=== PATIENT | female | born 1950 | race Caucasian/White ===

== ENCOUNTER → 2018-09-03 15:26 | Outpatient (CLI) | payer OTHER, SELFPAY ==
--- NOTE | 2018-09-03 | DI.MG.S_ITS ---
BILATERAL DIGITAL SCREENING MAMMOGRAM 3D/2D WITH CAD: 09/03/2018 CLINICAL: Routine screening. Family history of breast cancer. Comparison is made to exams dated: 05/20/2017 mammogram - [facility], 05/07/2016 mammogram, and 08/27/2014 mammogram - [facility]. The tissue of both breasts is heterogeneously dense. This may lower the sensitivity of mammography. Current study was also evaluated with a Computer Aided Detection (CAD) system. There are benign vascular calcifications in the right breast. No significant masses, calcifications, or other findings are seen in either breast. There has been no significant interval change. IMPRESSION: There is no mammographic evidence of malignancy. A 1 year screening mammogram is recommended. This exam was interpreted at Station ID: [id number]. NOTE: For mammograms, a report in lay terms will be sent to the patient. Approximately 15% of breast malignancies will not be visualized mammographically. In the management of a palpable breast mass, a negative mammogram must not discourage biopsy of a clinically suspicious lesion. Electronically Signed By: Luke waldrop/renetta:09/03/2018 18:47:25 letter sent: Normal Exam ACR BI-RADS Category 2: Benign Finding(s) 3342F
== END ==
PROVIDERS: Visit Provider Family Medicine
DX: Z12.31 Encounter for screening mammogram for malignant neoplasm of breast (principal); Z80.3 Family history of malignant neoplasm of breast
CPT/HCPCS: 77063; 77067

== ENCOUNTER → 2020-08-23 13:39 | Outpatient (CLI) | payer MEDICARE, SELFPAY | PROVIDERS: PCP Nurse Practitioner Family; Referring Provider Nurse Practitioner Family; Visit Provider Nurse Practitioner Family | DX: M81.0 Age-related osteoporosis without current pathological fracture (principal); E55.9 Vitamin D deficiency, unspecified; R29.890 Loss of height | CPT/HCPCS: 77080 ==

== ENCOUNTER → 2022-03-02 13:30 | Outpatient (CLI) | payer MEDICARE, SELFPAY ==
--- NOTE | 2022-03-02 | DI.MG.S_ITS ---
UNILATERAL RIGHT DIGITAL DIAGNOSTIC MAMMOGRAM 3D/2D WITH ADDITIONAL VIEWS: 03/02/2022 CLINICAL: Additional evaluation requested from prior study. Comparison is made to exams dated: 01/18/2022 mammogram - outside facility, 01/13/2020 mammogram - [facility], and 09/03/2018 mammogram - [facility]. The right breast is heterogeneously dense, which may obscure small masses (category c / 51-75% glandular tissue). There are new linear fine heterogeneous calcifications in the right breast at 1 o'clock middle depth. These are seen in additional views. No other significant masses or calcifications are seen in the breast. IMPRESSION: SUSPICIOUS OF MALIGNANCY The new linear fine heterogeneous calcifications in the right breast are at a high suspicion for malignancy. A stereotactic biopsy is recommended. Findings and recommendations were discussed with the patient by the onsite radiologist, Dr. Muir, at the time of the exam. Based on the Tyrer Cuzick model (a risk assessment model) the patient's lifetime risk is 12.9% and her 10 year risk is 7.7%. According to the ACR, ACS, and NCCN guidelines, an annual breast MRI exam along with mammogram is recommended if the patient's lifetime risk is 20% or greater. This exam was interpreted at Station ID: [id number]. NOTE: For mammograms, a report in lay terms will be sent to the patient. Approximately 15% of breast malignancies will not be visualized mammographically. In the management of a palpable breast mass, a negative mammogram must not discourage biopsy of a clinically suspicious lesion. Electronically Signed By: Henri olmos/renetta:03/02/2022 15:34:47 letter sent: Biopsy Required ACR BI-RADS Category 4c: Suspicious abnormality - moderate concern but not classic for malignancy 3344F
== END ==
PROVIDERS: PCP Family Medicine; Referring Provider Nurse Practitioner Family; Visit Provider Nurse Practitioner Family
DX: R92.8 Other abnormal and inconclusive findings on diagnostic imaging of breast (principal); R92.1 Mammographic calcification found on diagnostic imaging of breast
CPT/HCPCS: 77065; G0279

== ENCOUNTER → 2022-04-02 12:16 | Outpatient (CLI) | payer MEDICARE, SELFPAY ==
--- NOTE | 2022-04-02 12:18 | DI.MRI.S_ITS ---
BREAST MRI OF BOTH BREASTS: 04/02/2022 CLINICAL: Intraductal carcinoma of the Right breast. PROCEDURE: MR BREAST BI WO/W CON INDICATIONS: Intraductal carcinoma in situ of right breast. TECHNIQUE: The patient was placed prone in a dedicated breast imaging coil. Precontrast axial STIR and 3D FLASH without fat saturation sequences were obtained. Both before and after bolus injection of contrast, sequential 1-minute axial 3D FLASH with fat saturation sequences for 3 time points, with subtraction images and maximum intensity projections (MIP's) generated. Delayed sagittal FLASH images with fat saturation were also obtained. CONTRAST: 20 cc ProHance IV contrast. Computer-aided detection, including computer algorithm analysis of MRI image data for lesion detection and characterization, pharmacokinetic analysis, with further physician review for interpretation, was performed. COMPARISON: [facility], MG, MG BREAST SPECIMEN RIGHT, 03/09/2022, 9:35. [facility], MG, MG DIGITAL BREAST TOMOSYNTHESIS BREAST BIOPSY RIGHT, 03/09/2022, 9:27. [facility], MG, MM SPECIAL VIEW RT, 03/02/2022, 13:43. Outside Facility, MG, MM SCREENING MAMMO BI, 01/18/2022, 15:22. [facility], MG, MG SCREENING BILATERAL DIGITAL BREAST TOMOSYNTHESIS, 01/13/2020, 13:15. FINDINGS: Image quality: Excellent. There is mild background parenchymal enhancement. Right breast: 12-1 o'clock anterior depth clumped non mass enhancement spanning 4 cm, (7/66, 76). Biopsy clip at the posterior aspect. This corresponds to the biopsy-proven DCIS. On the mammogram there is subtle fine calcifications in this region best seen on the ML view. The mammogram calcifications slightly underestimate the extent of non mass enhancement and likely extent of disease. Kinetic analysis demonstrates slow initial phase and persistent delayed phase. No mass is identified. Left breast: No mass or suspicious enhancement. Miscellaneous: No enlarged lymph nodes. IMPRESSION: KNOWN BIOPSY PROVEN MALIGNANCY 1. Right breast: 12-1 o'clock anterior depth clumped non mass enhancement spanning 4 cm corresponding to the biopsy-proven DCIS. The disease extends anterior from the biopsy clip. Disease on MRI is slightly larger than the fine calcifications seen on mammogram. Bracketed localization would be helpful for surgical planning. 2. Left breast: No mass or suspicious enhancement. 3. Axilla: No enlarged lymph nodes. BIRADS 6 COMMENT: The imaging literature indicates that a negative contrast breast MRI examination has a high sensitivity and a moderate specificity for detecting and excluding invasive carcinomas to a detection threshold of 3-5 mm; nonetheless, appropriate clinical and mammographic follow-up are recommended. MRI is not sensitive for detecting DCIS (ductal carcinoma in situ) and may not detect large invasive neoplasms that show only minimal enhancement such as mucinous carcinoma. If there are suspicious calcifications or clinically worrisome palpable masses, then biopsy should still be considered. Invasive neoplasms can be hidden by co-existent and benign enhancement caused by mastitis, hormone therapy effects, radiation therapy, , and recent biopsy or surgery. False positive examinations can occur in a number of circumstances, including breasts that have recently been subject to invasive procedures and those that contain atypical ductal hyperplasia, hormonally stimulated glandular tissue, fat necrosis, or radial scars. Dictated by: Sid Escamilla M.D. on 04/02/2022 at 16:46 This exam was interpreted at Station ID: [id number]. Electronically Signed By: Sid Escamilla M.D. slc/:04/02/2022 17:05:40 ACR BI-RADS Category 6: Known biopsy proven malignancy 3346F
== END ==
PROVIDERS: PCP Family Medicine; Referring Provider Student in an Organized Health Care Education/Training Program; Visit Provider Student in an Organized Health Care Education/Training Program
DX: D05.11 Intraductal carcinoma in situ of right breast (principal)
CPT/HCPCS: 77049; A9579

== ENCOUNTER → 2022-08-14 14:01 | Outpatient (CLI) | payer MEDICARE, SELFPAY ==
--- NOTE | 2022-08-14 14:41 | DI.DEXA.S_ITS ---
Bone Density Report Name: JUAN JOSÉ MORALES Age: 71 Sex: Female Ethnicity: White Date of : 1950 Indication: postmenopausal osteoporosis; monitoring treatment; Referring Provider: SERVANDO MOSHER Study: Bone densitometry was performed. Exam Date: August 14, 2022 Accession number: [id number] Bone Density: Region BMD T-score Z-score Classification AP Spine(L1, L2, L3) 0.810 -1.9 0.2 Osteopenia Femoral Neck (Left) 0.572 -2.5 -0.7 Osteoporosis Total Hip (Left) 0.680 -2.1 -0.6 Osteopenia Femoral Neck (Right) 0.572 -2.5 -0.7 Osteoporosis Total Hip (Right) 0.692 -2.0 -0.6 Osteopenia Total Hip Mean 0.686 -2.1 -0.6 Osteopenia World Health Organization criteria for BMD impression classify patients as: Normal (T-score at or above -1.0), Osteopenia (T-score between -1.0 and -2.5), or Osteoporosis (T-score at or below -2.5). 10-year Fracture Risk: FRAX not reported because: Some T-score for Spine Total or Hip Total or Femoral Neck at or below -2.5 Treated for osteoporosis Previous Exams: -- Region Exam Age BMD T-score BMD Change BMD Change Date g/cm2 vs Baseline vs Previous -- AP Spine (L1-L3) 08/14/2022 71 0.810 -1.9 0.040 (5.2%)# 0.040 (5.2%)# 08/23/2020 69 0.770 -2.3 Total Hip(Left) 08/14/2022 71 0.680 -2.1 0.069 (11.2%)# 0.069 (11.2%)# 08/23/2020 69 0.612 -2.7 Total Hip(Right) 08/14/2022 71 0.692 -2.0 0.048 (7.5%)# 0.048 (7.5%)# 08/23/2020 69 0.644 -2.4 -- *Denotes significance at 95% confidence level, LSC for AP Spine = 0.022 g/cm2, LSC for Total Hip = 0.027 g/cm2 # Denotes dissimilar scan types or analysis methods Impression: The patient has osteoporosis, based on the Left Femoral Neck T-score. No significant bone loss was observed. Discussion: PATIENT UNDER TREATMENT WITH NO SIGNIFICANT BMD LOSS SINCE LAST EXAM. In an untreated patient, BMD typically declines with age. A lack of decline or gain is usually a sign that treatment is efficacious and fracture risk is reduced. It is important to ask patients whether they are taking their medications and to encourage continued and appropriate compliance with their osteoporosis therapies to reduce fracture risk. It is also important to review their risk factors and encourage appropriate calcium and vitamin D intakes, exercise, fall prevention and other lifestyle measures. Follow-Up: Consider a repeat BMD and Vertebral Fracture Assessment (VFA) exam in 2 years or sooner if medically necessary, to reassess this patient's status. Reported by: ALICIA JOSEPH MD on 08/14/2022 2:51:00 PM.
== END ==
PROVIDERS: PCP Family Medicine; Referring Provider Family Medicine; Visit Provider Family Medicine
DX: M81.0 Age-related osteoporosis without current pathological fracture (principal)
CPT/HCPCS: 77080

== ENCOUNTER → 2022-11-06 11:02 | Outpatient (CLI) | payer MEDICARE, SELFPAY ==
--- NOTE | 2022-11-06 | DI.MRI.S_ITS ---
PROCEDURE: MRFOOT LT WO CON INDICATIONS: Pain in left foot TECHNIQUE: Noncontrast sagittal T1 spin echo and T2 fast spin echo with fat saturation, long-axis T1 spin echo and stir, short-axis T1 spin echo and T2 fast spin echo with fat saturation through the forefoot. COMPARISON: None. FINDINGS: Image quality: Excellent. Bones and joints: No bone marrow contusions or metatarsal stress fractures. The sesamoid bones appear in expected positions, without internal edema. Mild degenerative changes are seen at the 1st metatarsophalangeal joint and throughout the interphalangeal joints of the toes. No metatarsophalangeal joint degeneration. No intraosseous lesions. Soft tissues: The visualized plantar foot muscles demonstrate normal signal and bulk. Visualized flexor and extensor tendons appear intact, without tenosynovitis. The distal insertions of the peroneus brevis and longus tendons appear intact. The principal Lisfranc ligament appears intact. No soft tissue ganglion cysts or bursal fluid collections. Sagittal images demonstrate no evidence for plantar plate tears. IMPRESSION: 1. Mild osteoarthrosis involving the 1st metatarsophalangeal joint and the interphalangeal joints of the toes. 2. No significant ligament or tendon injury. Approved by: Henri Beckett M.D. on 11/07/2022 at 9:52
== END ==
PROVIDERS: PCP Family Medicine; Referring Provider Nurse Practitioner Family; Visit Provider Nurse Practitioner Family
DX: M19.072 Primary osteoarthritis, left ankle and foot (principal); M79.672 Pain in left foot
CPT/HCPCS: 73718

== ENCOUNTER → 2023-03-01 10:14 | Outpatient (CLI) | payer MEDICARE, SELFPAY ==
--- NOTE | 2023-03-01 | DI.MG.S_ITS ---
BILATERAL DIGITAL DIAGNOSTIC MAMMOGRAM 3D/2D: 03/01/2023 CLINICAL: Post right lumpectomy. Due for bilateral routine. Comparison is made to exams dated: 01/18/2022 mammogram - outside facility, 01/13/2020 mammogram - [facility], 09/03/2018 mammogram, and 03/02/2022 mammogram - [facility]. Both breasts are heterogeneously dense, which may obscure small masses (category c / 51-75% glandular tissue). There are benign post operative findings in the right breast. There are grouped fine calcifications in the right breast at 12 o'clock middle depth in the operative bed. There are surgical clips and a post-surgical scar associated with the calcifications. No other significant masses, calcifications, or other findings are seen in either breast. IMPRESSION: PROBABLY BENIGN The patient is status post right lumpectomy in March 2022. This is the baseline mammogram. The grouped fine calcifications in the right breast are probably benign and likely related to prior surgery, however close follow-up is recommended. A follow-up mammogram in 6 months is recommended to demonstrate stability. This exam was interpreted at Station ID: [id number]. NOTE: For mammograms, a report in lay terms will be sent to the patient. Approximately 15% of breast malignancies will not be visualized mammographically. In the management of a palpable breast mass, a negative mammogram must not discourage biopsy of a clinically suspicious lesion. Electronically Signed By: Josr Kelly M.D. acr/:03/01/2023 11:25:37 letter sent: Followup Recommended ACR BI-RADS Category 3: Probably benign 3343F
== END ==
PROVIDERS: PCP Family Medicine; Referring Provider Radiology Radiation Oncology; Visit Provider Radiology Radiation Oncology
DX: R92.1 Mammographic calcification found on diagnostic imaging of breast (principal); D05.11 Intraductal carcinoma in situ of right breast
CPT/HCPCS: 77066; G0279

== ENCOUNTER → 2023-09-24 09:36 | Outpatient (CLI) | payer MEDICARE, SELFPAY ==
--- NOTE | 2023-09-24 09:38 | DI.MG.S_ITS ---
UNILATERAL RIGHT DIGITAL DIAGNOSTIC MAMMOGRAM 3D/2D: 09/24/2023 CLINICAL: Additional evaluation requested from prior study. Comparison is made to exams dated: 03/01/2023 mammogram - [facility], 01/18/2022 mammogram - outside facility, 01/13/2020 mammogram - [facility], and 09/03/2018 mammogram - [facility]. The right breast is heterogeneously dense, which may obscure small masses (category c / 51-75% glandular tissue). There are post operative findings in the 12:00 middle depth right breast. There are loosely grouped fine and punctate calcifications in the right breast at 12 o'clock middle depth just anterior to the surgical clips. These have not significantly changed. No other significant masses or calcifications are seen in the breast. IMPRESSION: PROBABLY BENIGN The calcifications in the right breast are stable and probably benign. A follow-up mammogram in 6 months is recommended. The patient will be due for bilateral mammograms at that same visit. Findings and recommendations were conveyed to the patient at time of exam. This exam was interpreted at Station ID: [id number]. NOTE: For mammograms, a report in lay terms will be sent to the patient. Approximately 15% of breast malignancies will not be visualized mammographically. In the management of a palpable breast mass, a negative mammogram must not discourage biopsy of a clinically suspicious lesion. Electronically Signed By: Josy roth/:09/24/2023 10:11:35 letter sent: Followup Recommended ACR BI-RADS Category 3: Probably benign 3343F
== END ==
PROVIDERS: PCP Family Medicine; Referring Provider Family Medicine; Visit Provider Family Medicine
DX: R92.1 Mammographic calcification found on diagnostic imaging of breast (principal); R92.2 Inconclusive mammogram; D05.11 Intraductal carcinoma in situ of right breast; R92.331 Mammographic heterogeneous density, right breast
CPT/HCPCS: 77065; G0279

== ENCOUNTER → 2024-01-20 11:54 | Outpatient (CLI) | payer MEDICARE, SELFPAY ==
--- NOTE | 2024-01-20 | DI.US.S_ITS ---
PROCEDURE: US CAROTID DOPPLER BI INDICATIONS: Mixed hyperlipidemia TECHNIQUE: Color and pulse Doppler interrogation was performed of both carotid systems, with image documentation and velocity measurements. COMPARISON: None. FINDINGS: Stenosis calculations are based on SRU (Society of Radiologists in Ultrasound) criteria. Right side: Brachial blood pressure: 97/61 mm Hg. Common carotid artery peak systolic velocity: 79 cm/sec. Internal carotid artery peak systolic velocity: 75 cm/sec. Internal carotid artery end diastolic velocity: 25 cm/sec. External carotid artery peak systolic velocity: 86 cm/sec. ICA/CCA peak systolic ratio: 1.0 . Gardner scale imaging description: Atherosclerotic plaque Percent internal carotid artery stenosis: Less than 50 . Vertebral artery: Flow direction is antegrade. Left side: Brachial blood pressure: 94/61 mm Hg. Common carotid artery peak systolic velocity: 94 cm/sec. Internal carotid artery peak systolic velocity: 83 cm/sec. Internal carotid artery end diastolic velocity: 31 cm/sec. External carotid artery peak systolic velocity: 115 cm/sec. ICA/CCA peak systolic ratio: 0.9 . Gardner scale imaging description: Atherosclerotic plaque Percent internal carotid artery stenosis: Less than 50 . Vertebral artery: Flow direction is antegrade. IMPRESSION: Less than 50% stenosis, bilateral proximal ICA Approved by: Alex Reyes M.D. on 01/20/2024 at 17:42
== END ==
PROVIDERS: PCP Family Medicine; Referring Provider Family Medicine; Visit Provider Family Medicine
DX: I65.23 Occlusion and stenosis of bilateral carotid arteries (principal); E78.2 Mixed hyperlipidemia
CPT/HCPCS: 93880

== ENCOUNTER → 2024-02-18 09:21 | Outpatient (CLI) | payer MEDICARE, SELFPAY ==
--- NOTE | 2024-02-18 09:22 | DI.ECHO.S_ITS ---
[place]+ [facility] : : [address] : : [place] : : [id number] : : Phone: [phone] Echocardiogram Report + + :Name: JUAN JOSÉ MORALES Study Date: 02/18/2024 Height: 64 in : :[facility] ReadingLocation: Weight: 125 lb : : Gender: Female BSA: 1.6 m2 : :: 1950 Age: 73 yrs BP: 105/63 mmHg: :Reason For Study: HEART MURMUR : :Ordering Physician: SERVANDO MOSHER : :E Performed By: Ivy Landin : :Referring: SERVANDO MOSHER E : + + Interpretation Summary The ejection fraction is estimated to be 60-65%. There is mild mitral regurgitation. There is moderate tricuspid regurgitation. The right ventricular systolic pressure is estimated to be at least 25 mmHg based on an estimated right atrial pressure of 3 mm Hg. Procedure: A two-dimensional transthoracic echocardiogram with color flow and Doppler was performed. The study quality was technically adequate. There is no prior echocardiogram noted for this patient. The patient was in sinus rhythm with heart rates between 57-66 bpm during the exam. Left Ventricle: The left ventricle is normal in size and wall thickness. The ejection fraction is estimated to be 60-65%. Left ventricular wall motion is normal. Right Ventricle: The right ventricle is normal in size and function. Atria: The left atrial size is normal. Right atrial size is normal. There is no Doppler evidence for an interatrial shunt. The thickening of interatrial septum suggests lipomatous hypertrophy. Mitral Valve: The mitral valve is normal in structure and function. There is mild mitral regurgitation. Aortic Valve: The aortic valve is trileaflet. The aortic valve opens well. There is no aortic valve stenosis. No aortic regurgitation is present. Tricuspid Valve: The tricuspid valve is normal in structure and function. There is moderate tricuspid regurgitation. The right ventricular systolic pressure is estimated to be at least 25 mmHg based on an estimated right atrial pressure of 3 mm Hg. Pulmonic Valve: The pulmonic valve leaflets are thin and pliable; valve motion is normal. There is mild pulmonic regurgitation. Great Vessels: The aortic root is normal size. The dimensions of the ascending aorta are normal. The IVC is of normal diameter and collapses greater than 50% with a sniff. This suggests a low right atrial pressure of 3 mm Hg. Pericardium/ Pleura There is no pericardial effusion. There is no pleural effusion. MMode/2D Measurements & Calculations LVIDd: 4.5 cm LVOT diam: 1.9 cm LVIDs: 2.7 cm Ao root diam: 2.8 cm FS: 41.7 % asc Aorta Diam: 2.4 cm IVSd: 0.67 cm Ao Arch Diam (Prox Trans): 2.1 cm LVPWd: 0.59 cm LV lake. diameter/BSA (cm/m^2): 2.8 LV sys. diameter/BSA (cm/m^2): 1.7 LA A2 area: 15.9 cm2 RA long axis: 4.6 cm LA A4 area: 15.6 cm2 RA area: 14.8 cm2 LA length (vol): 5.0 cm RA vol: 40.8 ml LA vol: 42.3 ml RA : 25.5 ml/m2 LA vol index: 26.4 ml/m2 IVC diam: 1.4 cm RVD1 (basal): 3.5 cm RVD2 (mid): 2.8 cm TAPSE: 1.8 cm Doppler Measurements & Calculations Ao V2 max: 137.4 cm/sec LVOT Max Evelio: 94.3 cm/sec Ao V2 mean: 94.5 cm/sec LV V1 max P.6 mmHg Ao max P.6 mmHg LV V1 VTI: 19.3 cm Ao mean P.0 mmHg ARCHIE(I,D): 2.1 cm2 Ao V2 VTI: 26.6 cm ARCHIE(V,D): 2.0 cm2 sev ratio: 0.73 ARCHIE indexed to BSA (cm^2/m^2): 1.3 MV E max evelio: 46.4 cm/sec TR max evelio: 232.6 cm/sec MV A max evelio: 50.1 cm/sec TR max P.6 mmHg MV E/A: 0.93 PA V2 max: 119.8 cm/sec Med Peak E' Evelio: 7.0 cm/sec PA V2 mean: 84.5 cm/sec E/E' med: 6.7 PA mean P.1 mmHg Lat Peak E' Evelio: 7.1 cm/sec PA pr(Accel): 32.8 mmHg E/E' lat: 6.5 E/e' average: 6.6 MV dec time: 0.25 sec SV(LVOT): 56.9 ml Reading Physician:01:54 PM
== END ==
LOC: ECHO 09:21
PROVIDERS: PCP Family Medicine; Referring Provider Family Medicine; Visit Provider Family Medicine
DX: R01.1 Cardiac murmur, unspecified (principal); I08.1 Rheumatic disorders of both mitral and tricuspid valves
CPT/HCPCS: 93306

== ENCOUNTER → 2024-06-10 10:07 | Outpatient (CLI) | payer MEDICARE, SELFPAY ==
--- NOTE | 2024-06-10 10:11 | DI.MG.S_ITS ---
BILATERAL DIGITAL DIAGNOSTIC MAMMOGRAM 3D/2D: 06/10/2024 CLINICAL: Short term follow up of the right breast, due for bilateral imaging. Personal history of right breast cancer. Comparison is made to exams dated: 09/24/2023 mammogram, 03/01/2023 mammogram - [facility], 01/13/2020 mammogram - [facility], and 01/18/2022 mammogram - outside facility. The breasts are heterogeneously dense, which may obscure small masses (category c / 51-75% glandular tissue). There are post operative findings in the right breast from prior lumpectomy. There are grouped punctate calcifications in the right breast at 12 o'clock middle depth just anterior to the surgical clips. These have not significantly changed since 03/01/2023 and are likely related to post treatment changes. No other significant masses, calcifications, or other findings are seen in either breast. IMPRESSION: PROBABLY BENIGN Right breast status post lumpectomy and grouped calcifications anterior to the surgical bed, stable since February 2023. Findings are probably benign. Recommend follow-up mammogram in 12 months to demonstrate 2 year stability. Patient will be due for bilateral mammogram at that time. Findings and recommendations were conveyed to the patient during today's evaluation. This exam was interpreted at Station ID: [id number]. NOTE: For mammograms, a report in lay terms will be sent to the patient. Approximately 15% of breast malignancies will not be visualized mammographically. In the management of a palpable breast mass, a negative mammogram must not discourage biopsy of a clinically suspicious lesion. Electronically Signed By: July Chapman M.D., Ph.D. eb/:06/10/2024 11:20:03 letter sent: Followup Recommended ACR BI-RADS Category 3: Probably Benign
== END ==
PROVIDERS: PCP Family Medicine; Referring Provider Radiology Radiation Oncology; Visit Provider Radiology Radiation Oncology
DX: R92.8 Other abnormal and inconclusive findings on diagnostic imaging of breast (principal); D05.11 Intraductal carcinoma in situ of right breast; R92.1 Mammographic calcification found on diagnostic imaging of breast; R92.333 Mammographic heterogeneous density, bilateral breasts
CPT/HCPCS: 77066; G0279

== ENCOUNTER → 2024-08-19 10:11 | Outpatient (CLI) | payer MEDICARE, SELFPAY ==
--- NOTE | 2024-08-19 10:12 | DI.RAD.S_ITS ---
PROCEDURE: XR DEXA AXIAL SKELETON INDICATIONS: SCREENING FOR OSTEOPOROSIS COMPARISON: [facility], CR, XR DEXA AXIAL SKELETON, 08/14/2022, 14:41. [facility], CR, XR DEXA AXIAL SKELETON, 08/23/2020, 14:02. [facility], CR, DEXA AXIAL SKELETON, 09/08/2014, 15:37. FINDINGS: Lumbar Spine: Bone mineral density 0.838 g/cm2, T score -1.6, previously -1.9. Left Femoral Neck: Bone mineral density 0.59 g/cm2, T score -2.3. Left Hip: Bone mineral density 0.713 g/cm2, T score -1.9, previously -2.1. Fracture Risk Calculation (when applicable): 10-year fracture risk of a major osteoporotic fracture 12 percent and of a hip fracture 3.1 percent. (T score greater or equal to -1.0 to: NORMAL) (T score from -1.1 to -2.4: OSTEOPENIA) (T score less than or equal to -2.5: OSTEOPOROSIS) IMPRESSION: 1. Osteopenia of the lumbar spine. 2. Osteopenia of the left hip and femoral neck. Follow-up guidelines as follows: Osteoporosis: Consider a repeat DEXA and Vertebral Fracture Assessment (VFA) exam in 2 years or sooner if medically necessary, to reassess this patient's status. Osteopenia: Consider a repeat DEXA in 2-3 years to reassess this patient's status, or if there is a new clinical indication. Normal: Consider a repeat DEXA in 5 years or sooner, or if there is a new clinical indication. All treatment decisions require clinical judgment and consideration of individual patient factors, including patient preferences, comorbidities, previous drug use, risk factors not captured in the FRAX model (e.g., frailty, falls, vitamin D deficiency, increased bone turnover, interval significant decline in bone density ) and possible under- or over-estimation of fracture risk by FRAX. In addition, the NOF Guide recommends that FDA-approved medical therapies be considered in postmenopausal women and men age >= 50 years with a: * Hip or vertebral (clinical or morphometric) fracture * T-score of <=-2.5 at the spine or hip * Ten-year fracture probability by FRAX of >= 3% for hip fracture or >=20% for major osteoporotic fracture. Dictated by: Rodri Chin M.D. on 08/19/2024 at 12:19 Approved by: Rodri Chin M.D. on 08/19/2024 at 12:20
== END ==
PROVIDERS: PCP Family Medicine; Referring Provider Family Medicine; Visit Provider Family Medicine
DX: M81.0 Age-related osteoporosis without current pathological fracture (principal)
CPT/HCPCS: 77080